=== PATIENT | male | born 1985 ===

== ENCOUNTER 2018-04-22 17:25 | Emergency (ER) | payer SELFPAY ==
[2018-04-22] MEDS ORDERED: Lidocaine 1% PF 5 ML VIAL ONE (17:54)
[2018-04-22] MEDS ORDERED: Bacitracin Zinc 1 Packet ONE (18:52)
== END 2018-04-22 18:57 | disposition home or self-care (01) ==
LOC: ERS 17:25
DX: S61.210A Laceration without foreign body of right index finger without damage to nail, initial encounter (principal); F17.210 Nicotine dependence, cigarettes, uncomplicated; W26.8XXA Contact with other sharp object(s), not elsewhere classified, initial encounter
CPT/HCPCS: 12001; J2001